=== PATIENT | male | born 1955 | race Caucasian/White ===

== ENCOUNTER 2022-07-03 19:57 | Inpatient (IN) | payer MEDICAID ==
[~2022-07-03] VITALS: Ht 167.6 cm; Wt 90.7 kg
[2022-07-03 21:00] VITALS: BP 108/78
[2022-07-03] MEDS ORDERED: DEXTROSE 50% WATER 50ML SYRINGE IV PRN (21:30)
[2022-07-03] MEDS ORDERED: DOCUSATE SODIUM 100MG CAPSULE PO SCH (21:30)
[2022-07-03] MEDS: HYDROCODONE/ACETAMINOPHEN 5/325MG TABLET PO PRN (23:09)
[2022-07-04] MEDS ORDERED: ACETAMINOPHEN 325MG TABLET PO PRN (02:00)
[2022-07-04] MEDS ORDERED: NON FORMULARY PATIENT HOME MED PO PRN (02:00)
[2022-07-04] MEDS ORDERED: MELATONIN 3MG TABLET PO PRN (02:30)
[2022-07-04] MEDS ORDERED: LISI-186 PO (03:20)
[2022-07-04] MEDS ORDERED: CLOP-31 MT (03:20)
[2022-07-04] MEDS ORDERED: ATOR80TA PO (03:20)
[2022-07-04] MEDS ORDERED: METF-874 PO (03:20)
[2022-07-04] MEDS: HYDROCODONE/ACETAMINOPHEN 5/325MG TABLET PO PRN ×2 (05:55→22:32)
[2022-07-04] MEDS: INSULIN ISOPHANE 100 UNIT/ML SUBCUT SCH (07:00)
[2022-07-04 07:34] LABS: CHLORIDE 102 mEq/L (98-107)
[2022-07-04 07:35] LABS: BASOPHILS % 0.4 % (0.0-2.0); HEMATOCRIT. 40.9 % (42.0-52.0); HEMOGLOBIN. 13.8 g/dL (14.0-18.0); LYMPHOCYTES % 23.2 % (20.0-50.0); MEAN CORPUSCULAR HEMOGLOBIN 32.1 pg (28.0-32.0); MEAN CORPUSCULAR VOLUME 95.1 fL (80.0-94.0); MEAN PLATELET VOLUME 8.3 fl (7.4-10.4); MONOCYTES % 9.4 % (2.0-8.0); PLATELET 313 x1000/uL (130-400); RED BLOOD CELL COUNT 4.31 mill/uL (4.7-6.1); RED CELL DISTRIBUTION WIDTH 12.3 % (11.6-14.6)
[2022-07-04 08:00] VITALS: BP 134/71
[2022-07-04] MEDS: LISINOPRIL 5MG TABLET PO SCH (09:43)
[2022-07-04] MEDS: CLOPIDOGREL 75MG TABLET PO SCH (09:43)
[2022-07-04] MEDS: BLOOD SUGAR DIAGNOSTIC STRIP TEST SCH ×4 (09:44→20:45)
[2022-07-04] MEDS: INSULIN LISPRO 100 UNITS/ML SUBCUT SCH ×4 (09:47→21:36)
[2022-07-04] MEDS: LACTULOSE 20G/30ML UDC PO SCH ×3 (09:51→16:46)
[2022-07-04] MEDS: ACETAMINOPHEN 325MG TABLET PO PRN (12:30)
[2022-07-04] MEDS ORDERED: NALOXONE HCL 0.4MG/ML VIAL IV PRN (18:15)
[2022-07-04] MEDS: DOCUSATE SODIUM 100MG CAPSULE PO SCH (18:31)
[2022-07-04 20:00] VITALS: BP 133/65
[2022-07-04] MEDS: ATORVASTATIN CALCIUM 40MG TABLET PO SCH (20:45)
[2022-07-05] MEDS: HYDROCODONE/ACETAMINOPHEN 5/325MG TABLET PO PRN ×2 (05:05→15:50)
[2022-07-05] MEDS: BLOOD SUGAR DIAGNOSTIC STRIP TEST SCH ×4 (05:46→20:20)
[2022-07-05] MEDS: INSULIN LISPRO 100 UNITS/ML SUBCUT SCH ×4 (07:00→21:52)
[2022-07-05] MEDS: INSULIN ISOPHANE 100 UNIT/ML SUBCUT SCH ×2 (07:00→18:54)
[2022-07-05 08:00] VITALS: BP 130/73
[2022-07-05] MEDS: POLYETHYLENE GLYCOL 3350 (17GM) 1 DOSE PACK PO SCH (09:59)
[2022-07-05] MEDS: THIAMINE HCL 100MG TABLET PO SCH (09:59)
[2022-07-05] MEDS: DOCUSATE SODIUM 100MG CAPSULE PO SCH ×2 (10:00→18:49)
[2022-07-05] MEDS: FOLIC ACID 1MG TABLET PO SCH (10:00)
[2022-07-05] MEDS: LISINOPRIL 5MG TABLET PO SCH (10:00)
[2022-07-05] MEDS: CLOPIDOGREL 75MG TABLET PO SCH (10:01)
[2022-07-05 10:14] LABS: BASOPHILS % 0.5 % (0.0-2.0); EOSINOPHILS % 2.6 % (0.0-5.0); HEMATOCRIT. 40.8 % (42.0-52.0); HEMOGLOBIN. 13.9 g/dL (14.0-18.0); MEAN CORPUSCULAR HEMOGLOBIN 32.5 pg (28.0-32.0); MEAN CORPUSCULAR VOLUME 95.1 fL (80.0-94.0); MEAN PLATELET VOLUME 7.9 fl (7.4-10.4); MONOCYTES % 9.2 % (2.0-8.0); NEUTROPHILS % 60.7 % (40.0-76.0); PLATELET 322 x1000/uL (130-400); RED BLOOD CELL COUNT 4.29 mill/uL (4.7-6.1); RED CELL DISTRIBUTION WIDTH 12.2 % (11.6-14.6)
[2022-07-05] MEDS: ACETAMINOPHEN 325MG TABLET PO PRN (10:36)
[2022-07-05 10:57] LABS: CHLORIDE 100 mEq/L (98-107)
[2022-07-05 11:13] LABS: TOTAL IRON BINDING CAPACITY 222 ug/dL (250-450)
[2022-07-05] MEDS ORDERED: MECLIZINE 25MG TABLET PO PRN (11:15)
[2022-07-05 11:26] LABS: FOLIC ACID (FOLATE) SERUM 17.8 ng/mL (>5.38)
[2022-07-05 12:36] LABS: PROSTRATE SPECIFIC AG TOTAL 5.04 ng/mL (0.0-4.0)
[2022-07-05] MEDS: LACTULOSE 20G/30ML UDC PO PRN (18:49)
[2022-07-05 20:00] VITALS: BP 126/66
[2022-07-05] MEDS: ATORVASTATIN CALCIUM 40MG TABLET PO SCH (20:20)
[2022-07-06] MEDS: HYDROCODONE/ACETAMINOPHEN 5/325MG TABLET PO PRN ×3 (03:10→13:39)
[2022-07-06] MEDS: BLOOD SUGAR DIAGNOSTIC STRIP TEST SCH ×4 (05:56→20:30)
[2022-07-06] MEDS: INSULIN ISOPHANE 100 UNIT/ML SUBCUT SCH ×2 (06:53→17:24)
[2022-07-06] MEDS: INSULIN LISPRO 100 UNITS/ML SUBCUT SCH ×4 (06:53→22:14)
[2022-07-06 08:00] VITALS: BP 110/67
[2022-07-06] MEDS: POLYETHYLENE GLYCOL 3350 (17GM) 1 DOSE PACK PO SCH (09:20)
[2022-07-06] MEDS: FOLIC ACID 1MG TABLET PO SCH (09:21)
[2022-07-06] MEDS: THIAMINE HCL 100MG TABLET PO SCH (09:21)
[2022-07-06] MEDS: DOCUSATE SODIUM 100MG CAPSULE PO SCH ×2 (09:22→17:20)
[2022-07-06] MEDS: LISINOPRIL 5MG TABLET PO SCH (09:22)
[2022-07-06] MEDS: CLOPIDOGREL 75MG TABLET PO SCH (09:22)
[2022-07-06 20:00] VITALS: BP 126/61
[2022-07-06] MEDS: ATORVASTATIN CALCIUM 40MG TABLET PO SCH (20:30)
[2022-07-07] MEDS: HYDROCODONE/ACETAMINOPHEN 5/325MG TABLET PO PRN ×4 (01:56→23:54)
[2022-07-07] MEDS: BLOOD SUGAR DIAGNOSTIC STRIP TEST SCH ×4 (06:15→20:32)
[2022-07-07] MEDS: INSULIN LISPRO 100 UNITS/ML SUBCUT SCH ×4 (06:15→21:08)
[2022-07-07] MEDS: INSULIN ISOPHANE 100 UNIT/ML SUBCUT SCH ×2 (06:55→17:40)
[2022-07-07 08:00] VITALS: BP 131/68
[2022-07-07] MEDS: FOLIC ACID 1MG TABLET PO SCH (09:24)
[2022-07-07] MEDS: DOCUSATE SODIUM 100MG CAPSULE PO SCH ×2 (09:24→17:39)
[2022-07-07] MEDS: POLYETHYLENE GLYCOL 3350 (17GM) 1 DOSE PACK PO SCH (09:24)
[2022-07-07] MEDS: THIAMINE HCL 100MG TABLET PO SCH (09:25)
[2022-07-07] MEDS: CLOPIDOGREL 75MG TABLET PO SCH (09:25)
[2022-07-07] MEDS: LISINOPRIL 5MG TABLET PO SCH (09:26)
[2022-07-07 20:00] VITALS: BP 105/61
[2022-07-07] MEDS: ATORVASTATIN CALCIUM 40MG TABLET PO SCH (20:27)
[2022-07-08] MEDS: BLOOD SUGAR DIAGNOSTIC STRIP TEST SCH ×4 (06:13→21:29)
[2022-07-08] MEDS: INSULIN LISPRO 100 UNITS/ML SUBCUT SCH ×4 (06:13→21:40)
[2022-07-08] MEDS: INSULIN ISOPHANE 100 UNIT/ML SUBCUT SCH ×2 (07:27→18:03)
[2022-07-08 08:00] VITALS: BP 121/64
[2022-07-08] MEDS: CLOPIDOGREL 75MG TABLET PO SCH (09:13)
[2022-07-08] MEDS: FOLIC ACID 1MG TABLET PO SCH (09:13)
[2022-07-08] MEDS: DOCUSATE SODIUM 100MG CAPSULE PO SCH ×2 (09:13→18:01)
[2022-07-08] MEDS: THIAMINE HCL 100MG TABLET PO SCH (09:13)
[2022-07-08] MEDS: POLYETHYLENE GLYCOL 3350 (17GM) 1 DOSE PACK PO SCH (09:13)
[2022-07-08] MEDS: HYDROCODONE/ACETAMINOPHEN 5/325MG TABLET PO PRN ×3 (09:13→23:13)
[2022-07-08] MEDS: LISINOPRIL 5MG TABLET PO SCH (09:15)
[2022-07-08 20:00] VITALS: BP 118/70
[2022-07-08] MEDS: ATORVASTATIN CALCIUM 40MG TABLET PO SCH (21:29)
[2022-07-09] MEDS: BLOOD SUGAR DIAGNOSTIC STRIP TEST SCH ×4 (06:14→21:53)
[2022-07-09] MEDS: INSULIN ISOPHANE 100 UNIT/ML SUBCUT SCH ×2 (07:00→17:00)
[2022-07-09 08:00] VITALS: BP 144/72
[2022-07-09] MEDS: INSULIN LISPRO 100 UNITS/ML SUBCUT SCH ×4 (09:00→22:04)
[2022-07-09] MEDS: POLYETHYLENE GLYCOL 3350 (17GM) 1 DOSE PACK PO SCH (09:57)
[2022-07-09] MEDS: DOCUSATE SODIUM 100MG CAPSULE PO SCH ×2 (09:57→17:49)
[2022-07-09] MEDS: LISINOPRIL 5MG TABLET PO SCH (09:57)
[2022-07-09] MEDS: THIAMINE HCL 100MG TABLET PO SCH (09:57)
[2022-07-09] MEDS: CLOPIDOGREL 75MG TABLET PO SCH (09:57)
[2022-07-09] MEDS: FOLIC ACID 1MG TABLET PO SCH (09:57)
[2022-07-09] MEDS: LACTULOSE 20G/30ML UDC PO PRN (10:02)
[2022-07-09 17:07] LABS: 25-HYDROXY VITAMIN D3 8.5 ng/mL (.)
[2022-07-09] MEDS: ENOXAPARIN 30MG/0.3ML SYR SUBCUT SCH (17:57)
[2022-07-09 20:00] VITALS: BP 113/64
[2022-07-09] MEDS: ATORVASTATIN CALCIUM 40MG TABLET PO SCH (21:54)
[2022-07-09] MEDS: HYDROCODONE/ACETAMINOPHEN 5/325MG TABLET PO PRN (22:47)
[2022-07-10] MEDS: ENOXAPARIN 30MG/0.3ML SYR SUBCUT SCH ×2 (05:32→17:12)
[2022-07-10] MEDS: BLOOD SUGAR DIAGNOSTIC STRIP TEST SCH ×4 (05:35→21:08)
[2022-07-10 07:18] LABS: HEMOGLOBIN 14.5 g/dL (14.0-18.0); MEAN CORPUSCULAR HEMOGLOBIN 32.7 pg (28.0-32.0); MEAN CORPUSCULAR VOLUME 94.8 fL (80.0-94.0); PLATELET 402 x1000/uL (130-400); RED BLOOD CELL COUNT 4.43 mill/uL (4.7-6.1); RED CELL DISTRIBUTION WIDTH 12.1 % (11.6-14.6)
[2022-07-10 07:30] LABS: CHLORIDE 96 mEq/L (98-107)
[2022-07-10 08:00] VITALS: BP 130/76
[2022-07-10] MEDS ORDERED: ENOXAPARIN 40MG/0.4ML SYR SUBCUT SCH (09:00)
[2022-07-10] MEDS: INSULIN LISPRO 100 UNITS/ML SUBCUT SCH ×4 (09:00→21:24)
[2022-07-10] MEDS: POLYETHYLENE GLYCOL 3350 (17GM) 1 DOSE PACK PO SCH (09:18)
[2022-07-10] MEDS: CLOPIDOGREL 75MG TABLET PO SCH (09:19)
[2022-07-10] MEDS: FOLIC ACID 1MG TABLET PO SCH (09:19)
[2022-07-10] MEDS: DOCUSATE SODIUM 100MG CAPSULE PO SCH ×2 (09:19→17:12)
[2022-07-10] MEDS: LISINOPRIL 5MG TABLET PO SCH (09:19)
[2022-07-10] MEDS: THIAMINE HCL 100MG TABLET PO SCH (09:19)
[2022-07-10] MEDS: INSULIN ISOPHANE 100 UNIT/ML SUBCUT SCH ×2 (09:41→17:42)
[2022-07-10] MEDS: HYDROCODONE/ACETAMINOPHEN 5/325MG TABLET PO PRN ×3 (11:15→21:47)
[2022-07-10] MEDS: ACETAMINOPHEN 325MG TABLET PO PRN (14:34)
[2022-07-10] MEDS ORDERED: NALOXONE HCL 0.4MG/ML VIAL IV PRN (15:45)
[2022-07-10 20:18] VITALS: BP 110/56
[2022-07-10] MEDS: ATORVASTATIN CALCIUM 40MG TABLET PO SCH (21:09)
[2022-07-11] MEDS: BLOOD SUGAR DIAGNOSTIC STRIP TEST SCH ×4 (06:14→21:15)
[2022-07-11] MEDS: ENOXAPARIN 30MG/0.3ML SYR SUBCUT SCH ×2 (06:14→18:04)
[2022-07-11] MEDS: INSULIN ISOPHANE 100 UNIT/ML SUBCUT SCH ×2 (06:38→18:17)
[2022-07-11] MEDS: INSULIN LISPRO 100 UNITS/ML SUBCUT SCH ×4 (06:38→21:00)
[2022-07-11] MEDS: HYDROCODONE/ACETAMINOPHEN 5/325MG TABLET PO PRN (06:45)
[2022-07-11 08:00] VITALS: BP 99/63
[2022-07-11] MEDS: CLOPIDOGREL 75MG TABLET PO SCH (08:16)
[2022-07-11] MEDS: DOCUSATE SODIUM 100MG CAPSULE PO SCH ×2 (08:16→18:04)
[2022-07-11] MEDS: POLYETHYLENE GLYCOL 3350 (17GM) 1 DOSE PACK PO SCH (08:16)
[2022-07-11] MEDS: FOLIC ACID 1MG TABLET PO SCH (08:16)
[2022-07-11] MEDS: THIAMINE HCL 100MG TABLET PO SCH (08:16)
[2022-07-11] MEDS: LISINOPRIL 5MG TABLET PO SCH (08:16)
[2022-07-11 20:00] VITALS: BP_SYST 115; BP_SYST 161; BP_DIAS 65; BP_DIAS 71
[2022-07-11] MEDS: ATORVASTATIN CALCIUM 40MG TABLET PO SCH (21:15)
[2022-07-12] MEDS: HYDROCODONE/ACETAMINOPHEN 5/325MG TABLET PO PRN ×3 (02:50→16:50)
[2022-07-12] MEDS: ENOXAPARIN 30MG/0.3ML SYR SUBCUT SCH ×2 (06:31→17:35)
[2022-07-12] MEDS: INSULIN ISOPHANE 100 UNIT/ML SUBCUT SCH ×2 (06:32→17:30)
[2022-07-12] MEDS: BLOOD SUGAR DIAGNOSTIC STRIP TEST SCH ×4 (06:32→21:03)
[2022-07-12 08:00] VITALS: BP 110/64
[2022-07-12] MEDS: INSULIN LISPRO 100 UNITS/ML SUBCUT SCH ×4 (09:00→21:00)
[2022-07-12] MEDS: CLOPIDOGREL 75MG TABLET PO SCH (10:20)
[2022-07-12] MEDS: DOCUSATE SODIUM 100MG CAPSULE PO SCH ×2 (10:20→17:01)
[2022-07-12] MEDS: ACETAMINOPHEN 325MG TABLET PO PRN (10:20)
[2022-07-12] MEDS: FOLIC ACID 1MG TABLET PO SCH (10:21)
[2022-07-12] MEDS: THIAMINE HCL 100MG TABLET PO SCH (10:21)
[2022-07-12] MEDS: LISINOPRIL 5MG TABLET PO SCH (10:21)
[2022-07-12] MEDS: POLYETHYLENE GLYCOL 3350 (17GM) 1 DOSE PACK PO SCH (10:21)
[2022-07-12] MEDS: LACTULOSE 20G/30ML UDC PO PRN (17:01)
[2022-07-12 20:00] VITALS: BP 132/51
[2022-07-12] MEDS: ATORVASTATIN CALCIUM 40MG TABLET PO SCH (21:03)
[2022-07-13] MEDS: HYDROCODONE/ACETAMINOPHEN 5/325MG TABLET PO PRN (02:08)
[2022-07-13] MEDS: ENOXAPARIN 30MG/0.3ML SYR SUBCUT SCH ×2 (06:58→18:00)
[2022-07-13] MEDS: BLOOD SUGAR DIAGNOSTIC STRIP TEST SCH ×4 (06:58→21:00)
[2022-07-13] MEDS: INSULIN ISOPHANE 100 UNIT/ML SUBCUT SCH ×2 (07:00→17:00)
[2022-07-13 08:00] VITALS: BP 138/78
[2022-07-13] MEDS: DOCUSATE SODIUM 100MG CAPSULE PO SCH ×2 (08:41→17:42)
[2022-07-13] MEDS: THIAMINE HCL 100MG TABLET PO SCH (08:41)
[2022-07-13] MEDS: FOLIC ACID 1MG TABLET PO SCH (08:41)
[2022-07-13] MEDS: LISINOPRIL 5MG TABLET PO SCH (08:42)
[2022-07-13] MEDS: POLYETHYLENE GLYCOL 3350 (17GM) 1 DOSE PACK PO SCH (08:42)
[2022-07-13] MEDS: CLOPIDOGREL 75MG TABLET PO SCH (08:43)
[2022-07-13] MEDS: LACTULOSE 20G/30ML UDC PO PRN (08:47)
[2022-07-13] MEDS: INSULIN LISPRO 100 UNITS/ML SUBCUT SCH ×4 (09:00→21:23)
[2022-07-13 20:03] VITALS: BP 110/60
[2022-07-13] MEDS: ATORVASTATIN CALCIUM 40MG TABLET PO SCH (21:09)
[2022-07-14] MEDS: ENOXAPARIN 30MG/0.3ML SYR SUBCUT SCH ×2 (06:04→18:07)
[2022-07-14] MEDS: BLOOD SUGAR DIAGNOSTIC STRIP TEST SCH ×4 (06:07→21:04)
[2022-07-14] MEDS: POLYETHYLENE GLYCOL 3350 (17GM) 1 DOSE PACK PO SCH (10:10)
[2022-07-14] MEDS: FOLIC ACID 1MG TABLET PO SCH (10:12)
[2022-07-14] MEDS: CLOPIDOGREL 75MG TABLET PO SCH (10:12)
[2022-07-14] MEDS: DOCUSATE SODIUM 100MG CAPSULE PO SCH ×2 (10:12→17:43)
[2022-07-14] MEDS: LISINOPRIL 5MG TABLET PO SCH (10:12)
[2022-07-14] MEDS: THIAMINE HCL 100MG TABLET PO SCH (10:12)
[2022-07-14] MEDS: INSULIN LISPRO 100 UNITS/ML SUBCUT SCH ×4 (10:24→21:52)
[2022-07-14] MEDS: INSULIN ISOPHANE 100 UNIT/ML SUBCUT SCH ×2 (10:26→17:50)
[2022-07-14] MEDS: ACETAMINOPHEN 325MG TABLET PO PRN (10:27)
[2022-07-14 20:00] VITALS: BP 109/62
[2022-07-14] MEDS: ATORVASTATIN CALCIUM 40MG TABLET PO SCH (21:47)
[2022-07-15 01:08] VITALS: BP 100/52
[2022-07-15] MEDS: BLOOD SUGAR DIAGNOSTIC STRIP TEST SCH ×4 (05:17→21:31)
[2022-07-15] MEDS: ENOXAPARIN 30MG/0.3ML SYR SUBCUT SCH ×2 (05:19→17:19)
[2022-07-15] MEDS: INSULIN LISPRO 100 UNITS/ML SUBCUT SCH ×4 (07:08→21:00)
[2022-07-15] MEDS: INSULIN ISOPHANE 100 UNIT/ML SUBCUT SCH ×2 (07:51→17:26)
[2022-07-15] MEDS: FOLIC ACID 1MG TABLET PO SCH (07:59)
[2022-07-15] MEDS: THIAMINE HCL 100MG TABLET PO SCH (07:59)
[2022-07-15 08:00] VITALS: BP 130/82
[2022-07-15] MEDS: CLOPIDOGREL 75MG TABLET PO SCH (08:00)
[2022-07-15] MEDS: DOCUSATE SODIUM 100MG CAPSULE PO SCH ×2 (08:00→17:19)
[2022-07-15] MEDS: LISINOPRIL 5MG TABLET PO SCH (08:00)
[2022-07-15] MEDS: POLYETHYLENE GLYCOL 3350 (17GM) 1 DOSE PACK PO SCH (08:00)
[2022-07-15 20:00] VITALS: BP 119/68
[2022-07-15] MEDS: ATORVASTATIN CALCIUM 40MG TABLET PO SCH (21:33)
[2022-07-16] MEDS: ENOXAPARIN 30MG/0.3ML SYR SUBCUT SCH ×2 (05:31→17:36)
[2022-07-16] MEDS: BLOOD SUGAR DIAGNOSTIC STRIP TEST SCH ×4 (06:52→21:42)
[2022-07-16 08:00] VITALS: BP 121/76
[2022-07-16] MEDS: CLOPIDOGREL 75MG TABLET PO SCH (08:28)
[2022-07-16] MEDS: ACETAMINOPHEN 325MG TABLET PO PRN ×2 (08:28→15:41)
[2022-07-16] MEDS: THIAMINE HCL 100MG TABLET PO SCH (08:28)
[2022-07-16] MEDS: FOLIC ACID 1MG TABLET PO SCH (08:29)
[2022-07-16] MEDS: LISINOPRIL 5MG TABLET PO SCH (08:29)
[2022-07-16] MEDS: DOCUSATE SODIUM 100MG CAPSULE PO SCH ×2 (08:29→17:35)
[2022-07-16] MEDS: POLYETHYLENE GLYCOL 3350 (17GM) 1 DOSE PACK PO SCH (08:29)
[2022-07-16] MEDS: INSULIN ISOPHANE 100 UNIT/ML SUBCUT SCH ×2 (08:36→17:41)
[2022-07-16] MEDS: INSULIN LISPRO 100 UNITS/ML SUBCUT SCH ×4 (09:00→21:42)
[2022-07-16 20:00] VITALS: BP 109/65
[2022-07-16] MEDS: ATORVASTATIN CALCIUM 40MG TABLET PO SCH (21:38)
[2022-07-17] MEDS: ENOXAPARIN 30MG/0.3ML SYR SUBCUT SCH ×2 (05:55→18:47)
[2022-07-17] MEDS: BLOOD SUGAR DIAGNOSTIC STRIP TEST SCH ×4 (05:59→21:00)
[2022-07-17 08:00] VITALS: BP 147/90
[2022-07-17] MEDS: INSULIN LISPRO 100 UNITS/ML SUBCUT SCH ×4 (09:00→21:34)
[2022-07-17] MEDS: POLYETHYLENE GLYCOL 3350 (17GM) 1 DOSE PACK PO SCH (09:57)
[2022-07-17] MEDS: ACETAMINOPHEN 325MG TABLET PO PRN (09:58)
[2022-07-17] MEDS: DOCUSATE SODIUM 100MG CAPSULE PO SCH ×2 (09:58→18:47)
[2022-07-17] MEDS: LISINOPRIL 5MG TABLET PO SCH (09:58)
[2022-07-17] MEDS: CLOPIDOGREL 75MG TABLET PO SCH (09:58)
[2022-07-17] MEDS: THIAMINE HCL 100MG TABLET PO SCH (09:58)
[2022-07-17] MEDS: FOLIC ACID 1MG TABLET PO SCH (09:58)
[2022-07-17] MEDS: INSULIN ISOPHANE 100 UNIT/ML SUBCUT SCH ×2 (10:38→19:05)
[2022-07-17] MEDS: ATORVASTATIN CALCIUM 40MG TABLET PO SCH (20:41)
[2022-07-18] MEDS: BLOOD SUGAR DIAGNOSTIC STRIP TEST SCH ×4 (06:07→21:00)
[2022-07-18] MEDS: ENOXAPARIN 30MG/0.3ML SYR SUBCUT SCH ×2 (06:07→18:57)
[2022-07-18 06:12] LABS: BASOPHILS % 0.8 % (0.0-2.0); EOSINOPHILS % 7.6 % (0.0-5.0); HEMATOCRIT. 40.9 % (42.0-52.0); HEMOGLOBIN. 13.8 g/dL (14.0-18.0); LYMPHOCYTES % 37.5 % (20.0-50.0); MEAN CORPUSCULAR HEMOGLOBIN 32.1 pg (28.0-32.0); MEAN CORPUSCULAR VOLUME 94.7 fL (80.0-94.0); MEAN PLATELET VOLUME 7.6 fl (7.4-10.4); MONOCYTES % 8.7 % (2.0-8.0); NEUTROPHILS % 45.4 % (40.0-76.0); PLATELET 332 x1000/uL (130-400); RED BLOOD CELL COUNT 4.32 mill/uL (4.7-6.1); RED CELL DISTRIBUTION WIDTH 12.5 % (11.6-14.6)
[2022-07-18 06:41] LABS: CHLORIDE 104 mEq/L (98-107)
[2022-07-18 08:00] VITALS: BP 136/72
[2022-07-18] MEDS: POLYETHYLENE GLYCOL 3350 (17GM) 1 DOSE PACK PO SCH (09:11)
[2022-07-18] MEDS: DOCUSATE SODIUM 100MG CAPSULE PO SCH ×2 (09:11→18:57)
[2022-07-18] MEDS: CLOPIDOGREL 75MG TABLET PO SCH (09:11)
[2022-07-18] MEDS: THIAMINE HCL 100MG TABLET PO SCH (09:11)
[2022-07-18] MEDS: FOLIC ACID 1MG TABLET PO SCH (09:12)
[2022-07-18] MEDS: LISINOPRIL 5MG TABLET PO SCH (09:13)
[2022-07-18] MEDS: INSULIN ISOPHANE 100 UNIT/ML SUBCUT SCH ×2 (09:15→17:00)
[2022-07-18] MEDS: INSULIN LISPRO 100 UNITS/ML SUBCUT SCH ×4 (09:16→21:27)
[2022-07-18 20:00] VITALS: BP 117/67
[2022-07-18] MEDS: ATORVASTATIN CALCIUM 40MG TABLET PO SCH (21:27)
[2022-07-19] MEDS: ENOXAPARIN 30MG/0.3ML SYR SUBCUT SCH ×2 (06:00→16:59)
[2022-07-19] MEDS: BLOOD SUGAR DIAGNOSTIC STRIP TEST SCH ×4 (06:26→21:40)
[2022-07-19] MEDS: INSULIN ISOPHANE 100 UNIT/ML SUBCUT SCH ×2 (06:28→17:10)
[2022-07-19 08:00] VITALS: BP 125/79
[2022-07-19] MEDS: DOCUSATE SODIUM 100MG CAPSULE PO SCH ×2 (08:20→16:59)
[2022-07-19] MEDS: CLOPIDOGREL 75MG TABLET PO SCH (08:20)
[2022-07-19] MEDS: FOLIC ACID 1MG TABLET PO SCH (08:20)
[2022-07-19] MEDS: THIAMINE HCL 100MG TABLET PO SCH (08:20)
[2022-07-19] MEDS: LISINOPRIL 5MG TABLET PO SCH (08:21)
[2022-07-19] MEDS: INSULIN LISPRO 100 UNITS/ML SUBCUT SCH ×4 (08:21→22:09)
[2022-07-19] MEDS: POLYETHYLENE GLYCOL 3350 (17GM) 1 DOSE PACK PO SCH (08:22)
[2022-07-19] MEDS: HYDROCODONE/ACETAMINOPHEN 5/325MG TABLET PO PRN (12:13)
[2022-07-19 19:47] VITALS: BP 95/59
[2022-07-19] MEDS: ATORVASTATIN CALCIUM 40MG TABLET PO SCH (21:40)
[2022-07-20] MEDS: ENOXAPARIN 30MG/0.3ML SYR SUBCUT SCH ×2 (06:47→18:05)
[2022-07-20] MEDS: BLOOD SUGAR DIAGNOSTIC STRIP TEST SCH ×4 (06:48→21:00)
[2022-07-20 08:00] VITALS: BP 126/69
[2022-07-20] MEDS: INSULIN LISPRO 100 UNITS/ML SUBCUT SCH ×4 (09:00→20:51)
[2022-07-20] MEDS: DOCUSATE SODIUM 100MG CAPSULE PO SCH ×2 (09:45→18:04)
[2022-07-20] MEDS: CLOPIDOGREL 75MG TABLET PO SCH (09:45)
[2022-07-20] MEDS: FOLIC ACID 1MG TABLET PO SCH (09:45)
[2022-07-20] MEDS ORDERED: NALOXONE HCL 0.4MG/ML VIAL IV PRN (09:45)
[2022-07-20] MEDS: THIAMINE HCL 100MG TABLET PO SCH (09:45)
[2022-07-20] MEDS: LISINOPRIL 5MG TABLET PO SCH (09:47)
[2022-07-20] MEDS: INSULIN ISOPHANE 100 UNIT/ML SUBCUT SCH ×2 (10:01→18:11)
[2022-07-20] MEDS: POLYETHYLENE GLYCOL 3350 (17GM) 1 DOSE PACK PO SCH (10:01)
[2022-07-20 20:00] VITALS: BP 109/64
[2022-07-20] MEDS: HYDROCODONE/ACETAMINOPHEN 5/325MG TABLET PO PRN (20:11)
[2022-07-20] MEDS: ATORVASTATIN CALCIUM 40MG TABLET PO SCH (21:38)
[2022-07-21] MEDS: ENOXAPARIN 30MG/0.3ML SYR SUBCUT SCH ×2 (05:47→16:36)
[2022-07-21] MEDS: BLOOD SUGAR DIAGNOSTIC STRIP TEST SCH ×4 (06:30→20:18)
[2022-07-21] MEDS: INSULIN ISOPHANE 100 UNIT/ML SUBCUT SCH ×2 (06:57→16:33)
[2022-07-21] MEDS: INSULIN LISPRO 100 UNITS/ML SUBCUT SCH ×4 (07:16→20:42)
[2022-07-21 08:15] VITALS: BP 117/68
[2022-07-21] MEDS: FOLIC ACID 1MG TABLET PO SCH (08:17)
[2022-07-21] MEDS: DOCUSATE SODIUM 100MG CAPSULE PO SCH ×2 (08:17→16:31)
[2022-07-21] MEDS: CLOPIDOGREL 75MG TABLET PO SCH (08:17)
[2022-07-21] MEDS: LISINOPRIL 5MG TABLET PO SCH (08:18)
[2022-07-21] MEDS: THIAMINE HCL 100MG TABLET PO SCH (08:18)
[2022-07-21] MEDS: POLYETHYLENE GLYCOL 3350 (17GM) 1 DOSE PACK PO SCH (08:18)
[2022-07-21 20:00] VITALS: BP 110/60
[2022-07-21] MEDS: ATORVASTATIN CALCIUM 40MG TABLET PO SCH (20:36)
[2022-07-22] MEDS: BLOOD SUGAR DIAGNOSTIC STRIP TEST SCH ×4 (05:38→20:50)
[2022-07-22] MEDS: ENOXAPARIN 30MG/0.3ML SYR SUBCUT SCH ×2 (05:38→16:18)
[2022-07-22] MEDS: INSULIN ISOPHANE 100 UNIT/ML SUBCUT SCH ×2 (06:53→16:18)
[2022-07-22] MEDS: INSULIN LISPRO 100 UNITS/ML SUBCUT SCH ×4 (06:56→21:00)
[2022-07-22 08:00] VITALS: BP 122/73
[2022-07-22] MEDS: THIAMINE HCL 100MG TABLET PO SCH (09:19)
[2022-07-22] MEDS: CLOPIDOGREL 75MG TABLET PO SCH (09:19)
[2022-07-22] MEDS: FOLIC ACID 1MG TABLET PO SCH (09:19)
[2022-07-22] MEDS: DOCUSATE SODIUM 100MG CAPSULE PO SCH ×2 (09:19→16:16)
[2022-07-22] MEDS: POLYETHYLENE GLYCOL 3350 (17GM) 1 DOSE PACK PO SCH (09:20)
[2022-07-22] MEDS: LISINOPRIL 5MG TABLET PO SCH (09:20)
[2022-07-22 19:58] VITALS: BP 117/63
[2022-07-22] MEDS: ATORVASTATIN CALCIUM 40MG TABLET PO SCH (21:00)
[2022-07-23] MEDS: BLOOD SUGAR DIAGNOSTIC STRIP TEST SCH ×4 (05:48→20:53)
[2022-07-23] MEDS: ENOXAPARIN 30MG/0.3ML SYR SUBCUT SCH ×2 (06:01→17:55)
[2022-07-23] MEDS: INSULIN ISOPHANE 100 UNIT/ML SUBCUT SCH ×2 (06:01→18:31)
[2022-07-23] MEDS: INSULIN LISPRO 100 UNITS/ML SUBCUT SCH ×4 (06:31→21:02)
[2022-07-23 08:00] VITALS: BP 128/76
[2022-07-23] MEDS: POLYETHYLENE GLYCOL 3350 (17GM) 1 DOSE PACK PO SCH (09:00)
[2022-07-23] MEDS: THIAMINE HCL 100MG TABLET PO SCH (10:16)
[2022-07-23] MEDS: CLOPIDOGREL 75MG TABLET PO SCH (10:18)
[2022-07-23] MEDS: FOLIC ACID 1MG TABLET PO SCH (10:19)
[2022-07-23] MEDS: LISINOPRIL 5MG TABLET PO SCH (10:19)
[2022-07-23] MEDS: DOCUSATE SODIUM 100MG CAPSULE PO SCH ×2 (10:19→17:55)
[2022-07-23] MEDS: HYDROCODONE/ACETAMINOPHEN 5/325MG TABLET PO PRN ×2 (13:49→20:20)
[2022-07-23 19:58] VITALS: BP 85/40
[2022-07-23 20:15] VITALS: BP 117/54
[2022-07-23] MEDS: ATORVASTATIN CALCIUM 40MG TABLET PO SCH (20:20)
[2022-07-24] MEDS: ENOXAPARIN 30MG/0.3ML SYR SUBCUT SCH ×2 (05:59→17:10)
[2022-07-24] MEDS: INSULIN LISPRO 100 UNITS/ML SUBCUT SCH ×4 (06:03→21:00)
[2022-07-24] MEDS: BLOOD SUGAR DIAGNOSTIC STRIP TEST SCH ×4 (06:03→21:00)
[2022-07-24] MEDS: INSULIN ISOPHANE 100 UNIT/ML SUBCUT SCH ×2 (07:19→17:22)
[2022-07-24 08:00] VITALS: BP 106/60
[2022-07-24] MEDS: LISINOPRIL 5MG TABLET PO SCH (09:00)
[2022-07-24] MEDS: HYDROCODONE/ACETAMINOPHEN 5/325MG TABLET PO PRN (09:22)
[2022-07-24] MEDS: CLOPIDOGREL 75MG TABLET PO SCH (09:23)
[2022-07-24] MEDS: POLYETHYLENE GLYCOL 3350 (17GM) 1 DOSE PACK PO SCH (09:23)
[2022-07-24] MEDS: THIAMINE HCL 100MG TABLET PO SCH (09:23)
[2022-07-24] MEDS: FOLIC ACID 1MG TABLET PO SCH (09:23)
[2022-07-24] MEDS: DOCUSATE SODIUM 100MG CAPSULE PO SCH ×2 (09:23→17:09)
[2022-07-24] MEDS ORDERED: HYDROCODONE/ACETAMINOPHEN 5/325MG TABLET PO PRN (16:45)
[2022-07-24 20:00] VITALS: BP 106/67
[2022-07-24] MEDS: ATORVASTATIN CALCIUM 40MG TABLET PO SCH (20:54)
[2022-07-25] MEDS: INSULIN LISPRO 100 UNITS/ML SUBCUT SCH ×4 (06:10→21:10)
[2022-07-25] MEDS: BLOOD SUGAR DIAGNOSTIC STRIP TEST SCH ×4 (06:10→20:57)
[2022-07-25] MEDS: ENOXAPARIN 30MG/0.3ML SYR SUBCUT SCH ×2 (06:13→17:05)
[2022-07-25] MEDS: INSULIN ISOPHANE 100 UNIT/ML SUBCUT SCH ×2 (06:17→16:29)
[2022-07-25 06:37] LABS: BASOPHILS % 0.6 % (0.0-2.0); EOSINOPHILS % 7.4 % (0.0-5.0); HEMATOCRIT. 39.7 % (42.0-52.0); HEMOGLOBIN. 13.5 g/dL (14.0-18.0); MEAN CORPUSCULAR HEMOGLOBIN 31.7 pg (28.0-32.0); MEAN CORPUSCULAR VOLUME 93.3 fL (80.0-94.0); MEAN PLATELET VOLUME 7.7 fl (7.4-10.4); MONOCYTES % 7.7 % (2.0-8.0); NEUTROPHILS % 48.3 % (40.0-76.0); PLATELET 265 x1000/uL (130-400); RED BLOOD CELL COUNT 4.26 mill/uL (4.7-6.1); RED CELL DISTRIBUTION WIDTH 12.2 % (11.6-14.6)
[2022-07-25 07:40] LABS: CHLORIDE 103 mEq/L (98-107)
[2022-07-25 08:00] VITALS: BP 135/77
[2022-07-25] MEDS: LISINOPRIL 5MG TABLET PO SCH (08:11)
[2022-07-25] MEDS: CLOPIDOGREL 75MG TABLET PO SCH (08:11)
[2022-07-25] MEDS: DOCUSATE SODIUM 100MG CAPSULE PO SCH ×2 (08:11→17:04)
[2022-07-25] MEDS: POLYETHYLENE GLYCOL 3350 (17GM) 1 DOSE PACK PO SCH (08:11)
[2022-07-25] MEDS: FOLIC ACID 1MG TABLET PO SCH (08:11)
[2022-07-25] MEDS: THIAMINE HCL 100MG TABLET PO SCH (08:11)
[2022-07-25] MEDS ORDERED: NALOXONE HCL 0.4MG/ML VIAL IV PRN (12:00)
[2022-07-25 19:50] VITALS: BP 107/53
[2022-07-25] MEDS: ATORVASTATIN CALCIUM 40MG TABLET PO SCH (21:00)
[2022-07-26] MEDS: ENOXAPARIN 30MG/0.3ML SYR SUBCUT SCH ×2 (06:04→16:57)
[2022-07-26] MEDS: BLOOD SUGAR DIAGNOSTIC STRIP TEST SCH ×4 (06:05→21:23)
[2022-07-26] MEDS: INSULIN ISOPHANE 100 UNIT/ML SUBCUT SCH (07:00)
[2022-07-26 08:00] VITALS: BP 127/70
[2022-07-26] MEDS: POLYETHYLENE GLYCOL 3350 (17GM) 1 DOSE PACK PO SCH (08:19)
[2022-07-26] MEDS: DOCUSATE SODIUM 100MG CAPSULE PO SCH ×2 (08:20→16:51)
[2022-07-26] MEDS: THIAMINE HCL 100MG TABLET PO SCH (08:21)
[2022-07-26] MEDS: FOLIC ACID 1MG TABLET PO SCH (08:21)
[2022-07-26] MEDS: LISINOPRIL 5MG TABLET PO SCH (08:23)
[2022-07-26] MEDS: CLOPIDOGREL 75MG TABLET PO SCH (08:28)
[2022-07-26] MEDS: INSULIN LISPRO 100 UNITS/ML SUBCUT SCH ×4 (08:29→21:00)
[2022-07-26] MEDS: REPAGLINIDE 1MG TABLET PO SCH ×2 (12:25→16:56)
[2022-07-26] MEDS: METFORMIN HCL 500MG TABLET PO SCH (16:55)
[2022-07-26 20:00] VITALS: BP 155/73
[2022-07-26] MEDS: ATORVASTATIN CALCIUM 40MG TABLET PO SCH (21:26)
[2022-07-26 23:10] VITALS: BP 155/73
[2022-07-27] MEDS: ENOXAPARIN 30MG/0.3ML SYR SUBCUT SCH ×2 (06:07→20:52)
[2022-07-27] MEDS: BLOOD SUGAR DIAGNOSTIC STRIP TEST SCH ×4 (06:07→20:52)
[2022-07-27 08:00] VITALS: BP 139/81
[2022-07-27] MEDS: POLYETHYLENE GLYCOL 3350 (17GM) 1 DOSE PACK PO SCH (09:00)
[2022-07-27] MEDS: INSULIN LISPRO 100 UNITS/ML SUBCUT SCH (09:00)
[2022-07-27] MEDS: CLOPIDOGREL 75MG TABLET PO SCH (10:02)
[2022-07-27] MEDS: THIAMINE HCL 100MG TABLET PO SCH (10:02)
[2022-07-27] MEDS: REPAGLINIDE 1MG TABLET PO SCH ×3 (10:02→16:37)
[2022-07-27] MEDS: FOLIC ACID 1MG TABLET PO SCH (10:02)
[2022-07-27] MEDS: DOCUSATE SODIUM 100MG CAPSULE PO SCH ×2 (10:03→17:00)
[2022-07-27] MEDS: METFORMIN HCL 500MG TABLET PO SCH ×2 (10:03→16:37)
[2022-07-27] MEDS: LISINOPRIL 5MG TABLET PO SCH (10:03)
[2022-07-27] MEDS ORDERED: INSULIN LISPRO 100 UNITS/ML SUBCUT SCH (17:00)
[2022-07-27] MEDS: INSULIN LISPRO (LOW DOSE) 100 UNITS/ML SUBCUT SCH (17:00)
[2022-07-27 20:00] VITALS: BP 118/67
[2022-07-27] MEDS: ATORVASTATIN CALCIUM 40MG TABLET PO SCH (20:52)
[2022-07-28] MEDS: ENOXAPARIN 30MG/0.3ML SYR SUBCUT SCH ×2 (06:41→17:14)
[2022-07-28] MEDS: BLOOD SUGAR DIAGNOSTIC STRIP TEST SCH ×4 (06:41→20:18)
[2022-07-28] MEDS: INSULIN LISPRO (LOW DOSE) 100 UNITS/ML SUBCUT SCH ×3 (07:00→17:00)
[2022-07-28 08:00] VITALS: BP 108/70
[2022-07-28] MEDS: POLYETHYLENE GLYCOL 3350 (17GM) 1 DOSE PACK PO SCH (09:00)
[2022-07-28] MEDS: CLOPIDOGREL 75MG TABLET PO SCH (10:34)
[2022-07-28] MEDS: REPAGLINIDE 1MG TABLET PO SCH ×3 (10:34→17:13)
[2022-07-28] MEDS: THIAMINE HCL 100MG TABLET PO SCH (10:34)
[2022-07-28] MEDS: FOLIC ACID 1MG TABLET PO SCH (10:34)
[2022-07-28] MEDS: LISINOPRIL 5MG TABLET PO SCH (10:35)
[2022-07-28] MEDS: DOCUSATE SODIUM 100MG CAPSULE PO SCH ×2 (10:35→17:13)
[2022-07-28] MEDS: METFORMIN HCL 500MG TABLET PO SCH ×2 (10:35→17:13)
[2022-07-28 19:54] VITALS: BP 82/48
[2022-07-28] MEDS: ATORVASTATIN CALCIUM 40MG TABLET PO SCH (20:10)
[2022-07-28] MEDS: ACETAMINOPHEN 325MG TABLET PO PRN (20:11)
[2022-07-28 20:13] VITALS: BP 98/51
[2022-07-28 21:40] VITALS: BP 107/59
[2022-07-29] MEDS: ACETAMINOPHEN 325MG TABLET PO PRN ×3 (04:18→20:34)
[2022-07-29] MEDS: ENOXAPARIN 30MG/0.3ML SYR SUBCUT SCH ×2 (06:01→17:44)
[2022-07-29] MEDS: INSULIN LISPRO (LOW DOSE) 100 UNITS/ML SUBCUT SCH ×3 (06:05→17:00)
[2022-07-29] MEDS: BLOOD SUGAR DIAGNOSTIC STRIP TEST SCH ×4 (06:05→20:32)
[2022-07-29 08:00] VITALS: BP 131/71
[2022-07-29] MEDS: FOLIC ACID 1MG TABLET PO SCH (10:03)
[2022-07-29] MEDS: THIAMINE HCL 100MG TABLET PO SCH (10:03)
[2022-07-29] MEDS: LISINOPRIL 5MG TABLET PO SCH (10:04)
[2022-07-29] MEDS: REPAGLINIDE 1MG TABLET PO SCH ×3 (10:04→17:51)
[2022-07-29] MEDS: POLYETHYLENE GLYCOL 3350 (17GM) 1 DOSE PACK PO SCH (10:05)
[2022-07-29] MEDS: CLOPIDOGREL 75MG TABLET PO SCH (10:05)
[2022-07-29] MEDS: DOCUSATE SODIUM 100MG CAPSULE PO SCH ×2 (10:05→17:51)
[2022-07-29] MEDS: METFORMIN HCL 500MG TABLET PO SCH ×2 (10:05→17:51)
[2022-07-29] MEDS: REPAGLINIDE 0.5MG TABLET PO SCH (19:49)
[2022-07-29 20:00] VITALS: BP 122/70
[2022-07-29] MEDS: ATORVASTATIN CALCIUM 40MG TABLET PO SCH (20:33)
[2022-07-30] MEDS: ENOXAPARIN 30MG/0.3ML SYR SUBCUT SCH (06:24)
[2022-07-30] MEDS: BLOOD SUGAR DIAGNOSTIC STRIP TEST SCH ×2 (06:29→11:15)
[2022-07-30] MEDS: INSULIN LISPRO (LOW DOSE) 100 UNITS/ML SUBCUT SCH ×2 (06:30→12:15)
[2022-07-30 08:00] VITALS: BP 142/78
[2022-07-30] MEDS: DOCUSATE SODIUM 100MG CAPSULE PO SCH (08:13)
[2022-07-30] MEDS: FOLIC ACID 1MG TABLET PO SCH (08:14)
[2022-07-30] MEDS: METFORMIN HCL 500MG TABLET PO SCH (08:15)
[2022-07-30] MEDS: THIAMINE HCL 100MG TABLET PO SCH (08:15)
[2022-07-30] MEDS: REPAGLINIDE 0.5MG TABLET PO SCH ×2 (08:15→12:26)
[2022-07-30] MEDS: CLOPIDOGREL 75MG TABLET PO SCH (08:15)
[2022-07-30] MEDS: LISINOPRIL 5MG TABLET PO SCH (08:16)
[2022-07-30] MEDS: POLYETHYLENE GLYCOL 3350 (17GM) 1 DOSE PACK PO SCH (08:16)
[2022-07-30 09:34] VITALS: BP 142/78
[2022-07-30] MEDS ORDERED: METF-414 PO (12:46)
[2022-07-30] MEDS ORDERED: VITA250012 PO (12:48)
[2022-07-30] MEDS ORDERED: REPA0.5T5 PO (12:49)
[2022-07-30] MEDS ORDERED: DOCU-138 PO (12:50)
[2022-07-30] MEDS ORDERED: FOLI-43 PO (12:50)
[2022-07-30] MEDS ORDERED: MELA3TAB40 PO (12:51)
[2022-07-30] MEDS ORDERED: POLY17PO3 PO (12:51)
== END 2022-07-30 14:00 | disposition home or self-care (01) | DRG 45 ==
PROVIDERS: ADMIT Psychiatry & Neurology Neurology; ATTEND Hospitalist
DX: I63.9 Cerebral infarction, unspecified (principal); F01.53 Vascular dementia, unspecified severity, with mood disturbance; E46 Unspecified protein-calorie malnutrition; D63.8 Anemia in other chronic diseases classified elsewhere; E87.1 Hypo-osmolality and hyponatremia; E11.51 Type 2 diabetes mellitus with diabetic peripheral angiopathy without gangrene; I69.354 Hemiplegia and hemiparesis following cerebral infarction affecting left non-dominant side; D75.839 Thrombocytosis, unspecified; E11.65 Type 2 diabetes mellitus with hyperglycemia; E66.9 Obesity, unspecified; E78.00 Pure hypercholesterolemia, unspecified; M19.90 Unspecified osteoarthritis, unspecified site; I10 Essential (primary) hypertension; I25.10 Atherosclerotic heart disease of native coronary artery without angina pectoris; I65.21 Occlusion and stenosis of right carotid artery; R97.20 Elevated prostate specific antigen [PSA]; R74.01 Elevation of levels of liver transaminase levels; M54.2 Cervicalgia; Z95.820 Peripheral vascular angioplasty status with implants and grafts; Z95.5 Presence of coronary angioplasty implant and graft; Z87.891 Personal history of nicotine dependence; Z82.49 Family history of ischemic heart disease and other diseases of the circulatory system; Z68.32 Body mass index [BMI] 32.0-32.9, adult; Z82.3 Family history of stroke; Z83.3 Family history of diabetes mellitus; Z79.02 Long term (current) use of antithrombotics/antiplatelets; Z91.81 History of falling; Z79.84 Long term (current) use of oral hypoglycemic drugs; R53.81 Other malaise; R26.9 Unspecified abnormalities of gait and mobility
CPT/HCPCS: 36415; 73120; 80048; 80053; 82306; 82607; 82728; 82746; 82962; 83036; 83540; 83550; 84134; 84153; 84443; 85025; 85027; 92523; 92610; 93970; 93971; 97110; 97112; 97116; 97162; 97166; 97530; 97535; 97542; J1650; J1815; G0103